=== PATIENT | female | born 1945 | race Caucasian/White ===

== ENCOUNTER → 2016-08-21 | Outpatient (CLI) | payer MEDICARE, OTHER ==
--- NOTE | 2016-08-22 10:06 | RAD ---
Lumbar spine, 3 views, 08/21/2016: History: Trauma, compression fracture, pain There is a mild left convexity lumbar scoliosis. There is a mild vertebral compression fracture at L4, also noted on the MR study of 06/20/2016. At that time there was evidence of edema in the vertebral body compatible with a recent fracture. There is a mild superior endplate deformity at L3 which was not evident on the MR study, compatible with a new fracture. There is a mild inferior endplate deformity at L1 which appears to have progressed since the MR study, at which time there was only minimal edema along the inferior endplate at L1. There are moderate scattered marginal spurs. There are moderate degenerative changes involving the facet joints bilaterally at multiple levels, particularly in the lower lumbar spine. The paraspinous soft tissues are unremarkable. IMPRESSION: 1. Subacute mild L4 vertebral compression fracture. 2. Subacute inferior endplate fracture at L1 which has progressed since 06/20/2016. 3. New superior endplate deformity at L3. 4. Moderate multilevel degenerative change.
== END | disposition home or self-care (01) ==
LOC: RAD 17:16
PROVIDERS: ATTEND Neurological Surgery
DX: S32.000A Wedge compression fracture of unspecified lumbar vertebra, initial encounter for closed fracture (principal); M41.86 Other forms of scoliosis, lumbar region; M47.896 Other spondylosis, lumbar region; M43.8X6 Other specified deforming dorsopathies, lumbar region; R60.9 Edema, unspecified; X58.XXXA Exposure to other specified factors, initial encounter; Y93.89 Activity, other specified; Y92.89 Other specified places as the place of occurrence of the external cause; Y99.8 Other external cause status
CPT/HCPCS: 72100

== ENCOUNTER → 2016-09-15 | Outpatient (CLI) | payer MEDICARE, OTHER ==
[2016-08-27 14:05] VITALS: BP 163/77
[~2016-09-15] MED LIST: ASPI81TA2 PO; CALC600T4 PO; CETI10CA PO; CHOL400C2 PO; DENO60DI SQ; DOCU-27 PO; ESZO3TAB9 PO; FLUT9.9S NS; GLUC100018 PO; INSU100V8 SQ; LETR2.5T PO; LOSA100T6 PO; METO25TA9 PO; NITR0.4T6 SL; OMEG1CAP16 PO; OMEP10SU PO
--- NOTE | 2016-09-15 14:54 | KCIC ---
PROCEDURE Thoracic spine MRI without contrast. HISTORY Compression fracture. TECHNIQUE Multiplanar and multi sequence magnetic resonance imaging of the thoracic spine was performed without contrast. COMPARISON Lumbar spine MRI dated 08/27/2016. FINDINGS There is a severe acute or subacute compression fracture of T7 with retropulsion of the right posterior inferior cortex into the central canal resulting in deformation of the right ventral aspect of the spinal cord and no significant stenosis. There is a moderate to severe compression fracture at T6 which appears to be subacute, based on edema along the fracture line. There is no significant retropulsion at this level. There is a mild compression fracture with prominent superior and inferior endplate Schmorl's nodes at T10. There is slight edema along the superior endplate at this level which may be due to the aforementioned Schmorl's node or degenerative. The imaging appearance does not favor an acute fracture. There is a mild chronic superior endplate depression at T4. There is also a mild inferior endplate depression at L1 which appears chronic. There are mild to moderate chronic compression fractures with vertebroplasty changes at L3 and L4, better characterized on the recent lumbar spine MRI. There is thoracic kyphosis and thoracolumbar scoliosis. There is mild listhesis at multiple levels. There is degenerative endplate remodeling and disc desiccation throughout the spine. There are disc bulges and protrusions at the cervical levels, incompletely evaluated on the current exam. There are disc bulges at multiple levels, predominately T5-T6, T6-T7 and T7-T8. There are also disc bulges with facet arthropathy at T9-T10 and T10-T11 and T11-T12. There is mild bilateral foraminal stenosis at these levels. No severe central canal stenosis is seen. No spinal cord lesion is seen. There is a T1 and T2 hypo intense focus within T12, likely due to focal fatty marrow sparing. No suspicious osseous lesion is seen. IMPRESSION 1. Severe acute or subacute fracture T7 with retropulsion of the right posterior inferior cortex resulting in deformation of the right ventral aspect of the spinal cord without significant central canal stenosis. 2. Moderate to severe compression fracture of T6, possibly subacute based on the presence of edema along the fracture line. 3. Mild compression fracture with prominent endplate Schmorl's nodes at T10. There is edema along the superior endplate at this level which may be due to the aforementioned Schmorl's node or degenerative. The imaging appearance does not favor an acute or subacute fracture. 4. Mild chronic superior endplate depression at T4 and inferior endplate depression at L1. 5. Moderate chronic compression fractures with vertebroplasty changes at L3 and L4. 6. Multilevel degenerative change throughout the thoracic spine, resulting in foraminal stenosis at multiple levels. No significant central canal stenosis is seen. 7. Thoracic kyphosis and S-shaped scoliosis. 8. Multilevel degenerative change within the cervical spine, incompletely evaluated on the current exam. 9. Multilevel degenerative change within the lumbar spine, characterized on the lumbar spine MRI dated 08/27/2016. Electronically signed by: Sirena Ferreira (Sep 15, 2016 14:53:01)
--- NOTE | 2016-09-15 15:17 | KCIC ---
PROCEDURE Lumbar spine, three views. HISTORY Compression fracture. FINDINGS Frontal, lateral and coned sacral views of the lumbar spine are obtained. Comparison is made with an MRI dated 08/27/2016. There are 6 non rib-bearing vertebral segments. Based on an MRI performed on the same date, the 1st non rib-bearing segment is considered T12 rather than L1 with 6 lumbar segments. Based on this numbering system, there are moderate compression fractures of L3 and L4 with vertebroplasty changes. There is also an inferior endplate depression at L1 and mild compression deformity with large endplate Schmorl's nodes at T10. These findings are similar compared to the prior MRI. There is scoliosis. There is degenerative endplate remodeling at all levels. The L5 segment appears partially sacralized with a rudimentary disc space. The sacralized left L5 transverse process articulates with the underlying sacrum. There is suspected bone demineralization. IMPRESSION 1. Six non rib-bearing vertebral segments. Based on prior MRIs and the vertebral numbering system utilized on prior reports, the last lumbar segment is considered a partially sacralized L5 segment. Based on this numbering system, there are moderate compression fractures with vertebroplasty changes at L3 and L4, stable in appearance. 2. Stable inferior endplate depression at L1 and mild compression deformity with endplate Schmorl's nodes at T10. 3. Lumbar scoliosis and multilevel degenerative change, primarily at the mid and lower lumbar levels. Electronically signed by: Sirena Ferreira (Sep 15, 2016 15:16:16)
== END | disposition home or self-care (01) ==
LOC: KCIC MRI 13:44
PROVIDERS: ATTEND Neurological Surgery
DX: S32.000S Wedge compression fracture of unspecified lumbar vertebra, sequela (principal)
CPT/HCPCS: 72100; 72146